=== PATIENT | female | born 1990 | race Caucasian/White ===

== ENCOUNTER 2020-04-02 06:52 | Emergency (ER) | payer OTHER, SELFPAY ==
[2020-04-02 07:04] VITALS: BP 152/107; PULSE 107; RESP 18; TEMP 37; O2SAT 98; BMI 26.6
--- NOTE | 2020-04-02 07:11 | [facility].EDGENADL ---
ED Disposition Clinical Impression: Lumbar strain Qualifiers: Encounter type: initial encounter Qualified Code(s): S39.012A - Strain of muscle, fascia and tendon of lower back, initial encounter Disposition: Home, Self-Care Condition on Discharge: Good Instructions: DI for Low Back Pain Additional Instructions: Take ibuprofen 600 mg every 6 hours while you are awake. Take the robaxin as needed for muscle spasm. You can use heating pads as well. Prescriptions: Methocarbamol [Robaxin 500mg Tab*] 500 mg PO TID PRN #9 tab PRN Reason: Muscle Spasm Prescription Printed Referrals: Herb Cooper PA [Primary Care Provider] - Forms: Work/School Release - Critical Care Critical Care Time: No Attestation: On , the high probability of a clinically significant, sudden or life threatening deterioration of the following system(s) required my full and direct attention, intervention and personal management. The time I documented below is in addition to time spent performing reported procedures but includes the following listed in this critical care notation. Medical Decision Making - Medical Records Medical records reviewed: Yes: I reviewed the patient's medical records. - [place] Inquiry Pt receiving controlled substance: No Vital Signs: 04/02/20 07:04 Temperature 98.6 F Temperature Source Oral Pulse Rate [Radial] 107 H Respiratory Rate 18 Blood Pressure [Right Arm] 152/107 H Blood Pressure Mean [Right Arm] 122 Blood Pressure Position [Right Arm] Sitting 02 Sat by Pulse Oximetry 98 Oxygen Delivery Method Room Air Orders (Tests/Meds): ED MEDICATIONS Discontinued Medications Generic Name Dose Route Start Last Admin Trade Name Freq PRN Reason Stop Dose Admin Methocarbamol 500 mg 04/02/20 07:05 Methocarbamol 500mg Tablet PO 04/02/20 07:06 ONCE ONE Naproxen 500 mg 04/02/20 07:04 Naproxen 500mg Tablet PO 04/02/20 07:05 ONCE ONE Medical Decision Narrative: The patient is a 29 year old female who presents with acute back pain after lifting a patient. She is neurovascularly intact. Her strength is good and sensation is intact. No red flag symptoms of back pain - no concern for epidural abscess, acute fracture, cauda equina. Given naproxen and robaxin in the ED. Will discharge home with return precautions. General Adult HPI - General Chief complaint: Back Pain/Injury Stated complaint: Back Injury at work 04/01/20 19:15 Time Seen by Provider: 04/02/20 07:04 Mode of Arrival: Ambulatory Limitations: No Limitations Description of Symptoms (Recalled from ER Triage Doc. by RN): to ed per pvt car with c/o lower back pain radiating up between shoulder blades . 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 states pain progressively worse. ibuprofen at 8pm lastnight - History of Present Illness HPI narrative: Patient is a 29 year old female who presents with back pain. She states she was lifting a patient at work who was 240 lb and after felt severe pain to her back from lower to between her shoulder blades. It doesn't radiate down her legs. No saddle anesthesia, bowel or urinary incontinence, no fever, no IVDU hx. She has been ambulatory. She took ibuprofen last night with some relief. - Related Data Previous Rx's Medication Instructions Recorded Methocarbamol [Robaxin 500mg Tab*] 500 mg PO TID PRN #9 tab 04/02/20 Allergies Allergy/AdvReac Type Severity Reaction Status Date / Time No Known Allergies Allergy Verified 04/02/20 07:09 [facility] History - Hepatitis A Screen Drug use history?: No High risk sexual behaviors?: No History of sexually transmitted infection?: No Currently employed?: No Childcare worker?: No Do you have indoor plumbing?: Yes Do you have electricity?: Yes Attestation statement:: This patient has been screened for Hepatitis A risk factors. - Social History Smoking Status: Current every day smoker Tobacco Type: c
[2020-04-02 07:23] VITALS: BP 132/89; PULSE 100; RESP 16; TEMP 37; O2SAT 98
== END 2020-04-02 07:24 | disposition home or self-care (01) ==
LOC: ER 07:22
PROVIDERS: Emergency Provider Emergency Medicine; PCP Physician Assistant
DX: S39.012A Strain of muscle, fascia and tendon of lower back, initial encounter (principal); X50.0XXA Overexertion from strenuous movement or load, initial encounter; Y93.F2 Activity, caregiving, lifting; Y92.69 Other specified industrial and construction area as the place of occurrence of the external cause; Y99.0 Civilian activity done for income or pay; F17.210 Nicotine dependence, cigarettes, uncomplicated
CPT/HCPCS: 99281